=== PATIENT | female | born 1940 | race Caucasian/White ===

== ENCOUNTER 2024-02-25 09:53 | Outpatient (CLI) | payer MEDICARE, BC | END 2024-02-25 09:54 | disposition home or self-care (01) | LOC: CSHSLEEP 09:53 | PROVIDERS: ATTEND Internal Medicine | DX: G47.33 Obstructive sleep apnea (adult) (pediatric) (principal); R53.83 Other fatigue; R06.83 Snoring; I63.9 Cerebral infarction, unspecified; I10 Essential (primary) hypertension; G47.61 Periodic limb movement disorder; R09.02 Hypoxemia | CPT/HCPCS: 95810 ==